=== PATIENT | female | born 1985 | race Caucasian/White ===

== ENCOUNTER 2017-04-30 07:59 | Emergency (ER) | payer MEDICAID ==
[~2017-04-30] VITALS: Ht 162.6 cm; Wt 95.5 kg
[~2017-04-30 07:59] MED LIST: CEPH-443 PO
[2017-04-30 08:02] VITALS: Ht 162.6 cm; Wt 95.5 kg
--- NOTE | 2017-04-30 08:21 | ERD ---
ER Documentation Chief Complaint Date/Time DATE: 04/30/17 TIME: 08:19 Chief Complaint HAS R SIDED PELVIC PAIN PAINFUL INTERCOARSE AND HX OF TUBELIGATION HPI 32-year-old female otherwise healthy comes emergency department intermittent right-sided pelvic pain for the past 2 days that has become more constant over the last 2 days. She describes as cramping sensation localized to the right lower pelvic region, usually associated with her menstrual cycle. She describes as mild pain, is usually intermittent, and has been on and off for the last 3 months and she has noticed it worse over the last 2 days. She states that it has become more constant after intercourse with her . She has not had any vaginal discharge, fevers or chills associated vaginal bleeding. Her last menstrual period was on April 04, 2017 and she is 4 para 3, history of tubal ligation with 3. ROS All systems reviewed and are negative except as per history of present illness. Medications Home Meds Active Scripts Naproxen* (Naprosyn*) 500 Mg Tablet, 500 MG PO BID Y for PAIN AND/OR INFLAMMATION, #30 TAB Prov:ANNABEL SOLOMON PA-C 04/30/17 Reported Medications Cephalexin* (Keflex*) 500 Mg Capsule, 500 MG PO qid 09/10/12 Allergies Allergies: Coded Allergies: No Known Drug Allergy (Verified Allergy, Unknown, 04/30/17) PMhx/Soc History of Surgery: Yes ( x3) Anesthesia Reaction: No Hx Neurological Disorder: No Hx Respiratory Disorders: No Hx Cardiac Disorders: No Hx Psychiatric Problems: No Hx Miscellaneous Medical Probl: No Hx Alcohol Use: No Hx Substance Use: No Hx Tobacco Use: No Physical Exam Vitals Vital Signs Date Time Temp Pulse Resp B/P Pulse Ox O2 Delivery O2 Flow Rate FiO2 04/30/17 09:33 81 17 116/78 100 Room Air 04/30/17 08:02 98.1 81 18 136/75 99 Physical Exam General: Well-developed, well-nourished. The patient appears in no acute distress. HEENT: Head is normocephalic, atraumatic. No scleral icterus. Neck: Supple. Nontender. Lungs: Clear to auscultation. Normal air movement. Heart: Regular rate and rhythm. S1 and S2 are normal. No murmurs, gallops, or rubs. Abdomen: Soft, TTP in right lower pelvic region, no McBurney tenderness, negative Flores sign, no masses or peritoneal signs nondistended. Bowel sounds are normoactive. Extremities: No clubbing or cyanosis. Normal pulses. Moving extremities x 4. No weakness. Neurologic: Alert and oriented 3. No focal deficits. Skin: Normal turgor. No rash or lesions. Results 24 hrs Laboratory Tests Test 04/30/17 08:22 Urine Color YELLOW Urine Clarity SLIGHTLY CLOUDY Urine pH 5.0 Urine Specific [place] 1.027 Urine Ketones NEGATIVEmg/dL Urine Nitrite NEGATIVEmg/dL Urine Bilirubin NEGATIVEmg/dL Urine Urobilinogen NEGATIVEmg/dL Urine Leukocyte Esterase NEGATIVELeu/ul Urine Microscopic RBC 1/HPF Urine Microscopic WBC 1/HPF Urine Squamous Epithelial Cells FEW/HPF Urine Mucus FEW/HPF Urine Hemoglobin NEGATIVEmg/dL Urine Glucose NEGATIVEmg/dL Urine Total Protein NEGATIVEmg/dl Current Medications Medications (Trade) Dose Ordered Sig/Robby Route PRN Reason Start Time Stop Time Status Last Admin Dose Admin Ibuprofen (Motrin) 600 mg ONCE ONCE PO 04/30/17 08:30 04/30/17 08:31 DC 04/30/17 08:27 DIAGNOSTIC IMAGING REPORT Patient: SAVANAH LYNCH : 1985 Age: 32 Sex: F MR #: [id number] DOS: 04/30/17816 Ordering MD: ANNABEL SOLOMON PA-C Location: [facility] Room/Bed: PROCEDURE: US Pelvis CLINICAL INDICATION: Right-sided pelvic pain TECHNIQUE: Sonographic evaluation of the pelvis was performed utilizing both transabdominal and transvaginal technique. Curved array transabdominal transducer technique as well as a high frequency endovaginal probe was utilized. Images were reviewed on the high-resolution PACS workstation. COMPARISON: No prior studies are available for comparison. FINDINGS: The uterus is normal in size, echogenicity, and morphology measuring 9.6 x 6.7 x 6.2 cm in dimension. The uterus is anteverted in normal position. The endometrium is normal for a menstrual age female measuring 11 mm in diameter. There are multiple uterine fibroids, the largest is intramural in location within the posterior uterine body measuring 4.0 x 3.0 x 3.8 cm. The right ovary measures 3.1 x 2.4 x 2.2 cm in dimension. There is a 1.5 cm right ovarian hemorrhagic cyst. The left ovary measures 2.8 x 1.7 x 1.8 cm in dimension. The ovaries are symmetric in size, echogenicity, and morphology. Normal Doppler flow is demonstrated to both ovaries. There are no adnexal masses. There is small free fluid in the pelvis. IMPRESSION: 1. Uterine fibroids, the largest is intramural in location within the posterior uterine body measuring 4.0 x 3.0 x 3.8 cm. 2. 1.5 cm right ovarian hemorrhagic cyst. RPTAT: HH .Daniela Cheatham MD, MD Date Time Electronically viewed and signed by .Daniela Cheatham MD, MD on 04/30/2017 09 :12 .G/ CC: ANNABEL SOLOMON PA-C Procedures/MDM ED course: Urine was obtained, she was given Motrin for pain. Urine was negative. Medical decision making: This is a 32-year-old female comes in the right-sided pelvic pain that has been intermittent for the past 3 months, patient has a hemorrhagic right ovarian cyst, as well as a uterine fibroid. Suspicion for ovarian torsion, tubo-ovarian abscess, PID, cervicitis is low. Additionally she has had this pain for approximately 3 months intermittently, and given this more lengthy presentation appendicitis is unlikely. She was given copies of ultrasound, she was asked to take anti-inflammatories for pain, she does have increasing pain she may return to the ER. I have advised her to follow-up with her primary care physician with the results, consider gynecologic evaluation and if no improvement. Departure Diagnosis: Primary Impression: Acute pain in female pelvis Additional Impressions: Ovarian cyst, right Uterine fibroid Condition: ANNABEL Carpenter PA-C Apr 30, 2017 08:21
[2017-04-30] MEDS ORDERED: IBUPROFEN 600 MG TAB PO ONE (08:30)
[2017-04-30 09:06] LABS: ADD UMIC NO; UR ASCORBIC ACID NEGATIVE (NEGATIVE); UR BILIRUBIN (Dip) NEGATIVE (NEGATIVE); UR BLOOD (Dip) NEGATIVE (NEGATIVE); UR CLARITY SLIGHTLY CLOUDY (CLEAR); UR COLOR YELLOW (YELLOW); UR GLUCOSE (Dip) NEGATIVE (NEGATIVE); UR KETONES (Dip) NEGATIVE (NEGATIVE); UR LEUKOCYTE ESTERASE (Dip) NEGATIVE Leu/ul (NEGATIVE); UR MUCUS FEW /HPF (NONE SEEN); UR NITRITE (Dip) NEGATIVE (NEGATIVE); UR RBC 1 /HPF (0-5); UR SPECIFIC GRAVITY (Dip) 1.027 (1.003-1.030); UR SQUAMOUS EPITHELIAL CELL FEW /HPF (FEW); UR TOTAL PROTEIN (Dip) NEGATIVE (NEGATIVE); UR UROBILINOGEN (Dip) NEGATIVE (NEGATIVE)
--- NOTE | 2017-04-30 09:12 | RADRPT ---
PROCEDURE: US Pelvis CLINICAL INDICATION: Right-sided pelvic pain TECHNIQUE: Sonographic evaluation of the pelvis was performed utilizing both transabdominal and tr ansvaginal technique. Curved array transabdominal transducer technique as well as a high frequency endovaginal probe was utilized. Images were reviewed on the high-resolution PACS workstation. COMPARISON: No prior studies are available for comparison. FINDINGS: The uterus is normal in size, echogenicity, and morphology measuring 9.6 x 6.7 x 6.2 cm in dimension . The uterus is anteverted in normal position. The endometrium is normal for a menstrual age fema le measuring 11 mm in diameter. There are multiple uterine fibroids, the largest is intramural in l ocation within the posterior uterine body measuring 4.0 x 3.0 x 3.8 cm. The right ovary measures 3.1 x 2.4 x 2.2 cm in dimension. There is a 1.5 cm right ovarian hemorrhagi c cyst. The left ovary measures 2.8 x 1.7 x 1.8 cm in dimension. The ovaries are symmetric in size, echogenicity, and morphology. Normal Doppler flow is demonstrated to both ovaries. There are no a dnexal masses. There is small free fluid in the pelvis. IMPRESSION: 1. Uterine fibroids, the largest is intramural in location within the posterior uterine body measur ing 4.0 x 3.0 x 3.8 cm. 2. 1.5 cm right ovarian hemorrhagic cyst. RPTAT: HH .Daniela Cheatham MD, Date Time Electronically viewed and signed by .Daniela Cheatham MD, on 04/30/2017 09:12 .G/
[2017-04-30] MEDS ORDERED: NAPR-260 PO (09:22)
[2017-04-30 09:33] VITALS: BP 116/78; PULSE 81; RESP 17
== END 2017-04-30 09:40 | disposition home or self-care (01) ==
LOC: FTE 07:59
DX: R10.2 Pelvic and perineal pain (principal); N83.201 Unspecified ovarian cyst, right side; D25.9 Leiomyoma of uterus, unspecified
CPT/HCPCS: 76830; 76856; 81001; Z7610; 81003

== ENCOUNTER 2017-12-27 08:55 | Emergency (ER) | END 2017-12-27 12:45 | disposition home or self-care (01) ==

== ENCOUNTER 2018-09-02 08:21 | Emergency (ER) | END 2018-09-02 10:10 | disposition home or self-care (01) ==

== ENCOUNTER 2019-06-03 19:55 | Emergency (ER) | payer MEDICAID ==
[~2019-06-03] VITALS: Ht 165.1 cm; Wt 96.8 kg
[~2019-06-03 19:55] MED LIST changes: +ACET500C5 PO; +ASPI-826 PO; +BEN25 PO; +BUTA1CAP38 PO; +IBUP800T48 PO; +MECL12.574 PO; +METO10TA92 PO; +NAPR-985 PO; +ONDA4TAB14 PO; +PROC10TA10 PO
[2019-06-03 20:16] VITALS: Ht 165.1 cm; Wt 96.8 kg
[2019-06-03 23:07] VITALS: BP 122/68; PULSE 69; RESP 18
== END 2019-06-03 23:08 | disposition home or self-care (01) ==
LOC: FTE 19:55
DX: G43.909 Migraine, unspecified, not intractable, without status migrainosus (principal); Z79.82 Long term (current) use of aspirin
CPT/HCPCS: 81001; 81025; 84703; 87086; J1200; J2765; J7030; Z7610; 81003; 96374; 96375